=== PATIENT | female | born 1975 | race Caucasian/White ===

== ENCOUNTER 2018-09-30 09:24 | Outpatient (RCR) | payer BC | END 2018-10-24 | disposition home or self-care (01) | LOC: WCC 09:24 | DX: T85.49XD Other mechanical complication of breast prosthesis and implant, subsequent encounter (principal); X58.XXXA Exposure to other specified factors, initial encounter; Y92.9 Unspecified place or not applicable ==

== ENCOUNTER 2018-09-30 14:15 | Outpatient (RCR) | payer SELFPAY | END 2018-10-24 | disposition home or self-care (01) | LOC: WCC 14:15 | DX: T85.49XD Other mechanical complication of breast prosthesis and implant, subsequent encounter (principal); X58.XXXD Exposure to other specified factors, subsequent encounter; Z79.899 Other long term (current) drug therapy ==